=== PATIENT | female | born 1965 | race Caucasian/White ===

== ENCOUNTER → 2017-01-17 | Outpatient (CLI) | payer OTHER ==
[~2017-01-17] MED LIST: ABILIFY5 MG; ANAPROX DS550 MG PO; ANUSOL-HC25 MG RC; ATARAX25 MG PO; ATIVAN0.5 MG PO; ATIVAN1 MG PO; CARVEDILOL12.5 MG; CARVEDILOL6.25 MG PO; CLARITIN10 MG PO; CLINDAMYCIN HC300 MG PO; DONNATAL1 TAB PO; EPI EZ PEN1 MG/ML IM; FIORICET 325 MG1 TAB PO; FIORICET W/CODE1 CA1 PO; HYDROCODONE BIT1 T11 PO; LEVAQUIN750 M1 PO; MAXALT5 MG PO; MOTRIN800 MG PO; NARATRIPTAN PO; PREDNICOT20 MG PO; PREDNISONE50 MG PO; PROCHLORPERAZIN10 MG PO; PROZAC20 MG PO; PROZAC40 MG PO; TOPAMAX25 MG PO; TRAMADOL HCL50 MG PO; ULTRAM50 MG PO; VISTARIL25 M1 PO; XANAX1 MG PO; ZOFRAN ODT4 MG SL; Zofran4 MG PO
[2017-01-17 11:35] LABS: BASO % 0.5 % (0.0-1.0); EOS # 0.3 10*3/uL (0.0-0.4); EOS % 4.6 % (1.0-4.0); HEMATOCRIT 37.2 % (37.0-47.0); HEMOGLOBIN 12.4 g/dl (12.0-16.0); LYMPH % 16.8 % (27.0-41.0); MEAN CELL VOLUME 83.2 fl (81.0-99.0); MEAN CORPUSCULAR HGB 27.7 pg (27.0-31.0); MEAN CORPUSCULAR HGB CONC 33.3 g/dl (33.0-37.0); MONO # 0.7 10*3/uL (0.1-1.0); MONO % 11.8 % (3.0-9.0); NEUT # 3.8 10*3/uL (2.3-7.9); NEUT % 65.8 % (47.0-73.0); PLATELET COUNT AUTOMATED 272 10*3/uL (130-400); RED BLOOD COUNT 4.47 10*6/uL (4.10-5.10); RED CELL DISTRI WIDTH 14.3 % (0-14.5); WHITE BLOOD COUNT 5.8 10*3/uL (4.8-10.8)
[2017-01-17 12:05] LABS: ALBUMIN 3.6 gm/dl (3.1-4.5); ALKALINE PHOSPHATASE 82 U/L (45-117); BILIRUBIN, TOTAL 0.8 mg/dl (0.2-1.0); BUN 6 mg/dl (7-24); CARBON DIOXIDE 33 mmol/L (21-32); CHLORIDE 99 mmol/L (98-107); EST GLOM FILT AFRICAN AMERICAN > 60 ml/min; GLUCOSE 97 mg/dL (65-99); IRON 50 ug/dL (50-170); IRON SATURATION 16 %; POTASSIUM 2.8 mmol/L (3.5-5.1); SGOT/AST 11 IU/L (3-35); SGPT/ALT 20 U/L (12-78); SODIUM 141 mmol/L (136-145); TOTAL PROTEIN 6.7 gm/dL (6.4-8.2); UIBC 247 ug/dL (110-365)
[2017-01-17 12:12] LABS: FERRITIN 15.8 ng/mL (10.0-291.0); VITAMIN D, 25-HYDROXY 43.7 ng/mL (30-100)
[2017-01-17 12:13] LABS: FOLIC ACID > 24.00 ng/mL (>5.38)
== END ==
LOC: LAB 11:06
DX: E56.9 Vitamin deficiency, unspecified (principal); R53.83 Other fatigue; Z98.84 Bariatric surgery status

== ENCOUNTER 2017-05-12 00:29 | Emergency (ER) | payer OTHER ==
[2017-05-12] MEDS ORDERED: LIDOCAINE-HC 3-07 G2 T (01:06)
== END 2017-05-12 02:51 | disposition home or self-care (01) ==
LOC: ED 00:29
DX: K64.9 Unspecified hemorrhoids (principal); Z88.0 Allergy status to penicillin; Z88.6 Allergy status to analgesic agent; Z88.2 Allergy status to sulfonamides; Z91.030 Bee allergy status

== ENCOUNTER 2017-09-27 06:21 | Emergency (ER) | payer OTHER ==
[~2017-09-27] VITALS: Ht 154.9 cm; Wt 49.0 kg
[~2017-09-27 06:21] MED LIST changes: +LIDOCAINE-HC 3-07 G2 T
== END 2017-09-27 07:51 | disposition home or self-care (01) ==
LOC: ED 06:21
DX: H10.9 Unspecified conjunctivitis (principal); G43.909 Migraine, unspecified, not intractable, without status migrainosus; Z91.030 Bee allergy status; Z88.0 Allergy status to penicillin; Z88.6 Allergy status to analgesic agent; Z88.8 Allergy status to other drugs, medicaments and biological substances; Z79.899 Other long term (current) drug therapy

== ENCOUNTER 2017-12-19 09:35 | Emergency (ER) | payer OTHER ==
[~2017-12-19] VITALS: Ht 157.4 cm; Wt 54.4 kg
--- NOTE | ~2017-12-19 | EKG ---
[place], [place] ELECTROCARDIOGRAM REPORT NAME: ARNOLD HERRERA UNIT #: [id number] ROOM: DOCTOR: RHIANNA DIALLO MD BIRTHDATE: [birth year] DOS: 12/19/2017 TIME: 1006 hours. Normal sinus rhythm at 58 beats per minute with the PVC. The tracing is normal. No previous tracing is available for comparison. RHIANNA DIALLO MD CM:EKGRPT:ELECTROCARDIOGRAM REPORT [id number] RHIANNA DIALLO MD
== END 2017-12-19 11:20 | disposition home or self-care (01) ==
LOC: ED 09:35
DX: G43.909 Migraine, unspecified, not intractable, without status migrainosus (principal); H53.149 Visual discomfort, unspecified; Z88.0 Allergy status to penicillin; Z88.2 Allergy status to sulfonamides; Z88.5 Allergy status to narcotic agent; Z91.030 Bee allergy status

== ENCOUNTER 2018-04-20 22:53 | Emergency (ER) | payer OTHER ==
[~2018-04-20] VITALS: Ht 154.9 cm; Wt 57.6 kg
[2018-04-20 23:44] LABS: BASO % 0.7 % (0.0-1.0); EOS # 0.1 10*3/uL (0.0-0.4); EOS % 1.7 % (1.0-4.0); HEMATOCRIT 38.5 % (37.0-47.0); HEMOGLOBIN 13.1 g/dl (12.0-16.0); LYMPH # 2.1 10*3/uL (1.3-4.4); LYMPH % 38.7 % (27.0-41.0); MEAN CELL VOLUME 88.9 fl (81.0-99.0); MEAN CORPUSCULAR HGB 30.3 pg (27.0-31.0); MEAN PLATELET VOLUME 9.4 fl (9.6-12.3); MONO # 0.5 10*3/uL (0.1-1.0); MONO % 9.7 % (3.0-9.0); NEUT # 2.6 10*3/uL (2.3-7.9); NEUT % 48.1 % (47.0-73.0); PLATELET COUNT AUTOMATED 229 10*3/uL (130-400); RED BLOOD COUNT 4.33 10*6/uL (4.10-5.10); RED CELL DISTRI WIDTH 12.1 % (0-14.5); WHITE BLOOD COUNT 5.4 10*3/uL (4.8-10.8)
[2018-04-20 23:56] LABS: ALBUMIN 3.9 gm/dl (3.1-4.5); ALKALINE PHOSPHATASE 72 U/L (45-117); BUN 12 mg/dl (7-24); CHLORIDE 98 mmol/L (98-107); CREATININE 0.81 mg/dL (0.55-1.02); POTASSIUM 3.4 mmol/L (3.5-5.1); SGOT/AST 13 IU/L (3-35); SGPT/ALT 30 U/L (12-78); SODIUM 136 mmol/L (136-145); TOTAL PROTEIN 6.5 gm/dL (6.4-8.2)
[2018-04-21 00:08] LABS: TROPONIN I < 0.015 ng/ml (<0.045)
[2018-04-21] MEDS ORDERED: ZITHROMAX250 MG PO (01:15)
== END 2018-04-21 01:18 | disposition home or self-care (01) ==
LOC: ED 22:53
PROVIDERS: Physician Assistant
DX: S01.112A Laceration without foreign body of left eyelid and periocular area, initial encounter (principal); J18.1 Lobar pneumonia, unspecified organism; Z23 Encounter for immunization; Z79.899 Other long term (current) drug therapy; Z91.030 Bee allergy status; Z88.0 Allergy status to penicillin; Z88.1 Allergy status to other antibiotic agents; Z88.6 Allergy status to analgesic agent; Z88.8 Allergy status to other drugs, medicaments and biological substances; W18.39XA Other fall on same level, initial encounter; Y93.89 Activity, other specified; Y92.89 Other specified places as the place of occurrence of the external cause; Y99.8 Other external cause status

== ENCOUNTER → 2018-04-26 | Outpatient (CLI) | payer OTHER ==
[~2018-04-26] MED LIST changes: +ZITHROMAX250 MG PO
[2018-04-26 11:10] LABS: ALBUMIN 4.3 gm/dl (3.1-4.5); ALKALINE PHOSPHATASE 84 U/L (45-117); BUN 12 mg/dl (7-24); CHLORIDE 98 mmol/L (98-107); CHOLESTEROL 177 mg/dL (<200); CREATININE 0.85 mg/dL (0.55-1.02); FREE T4 1.05 ng/dl (0.76-1.46); HDL CHOLESTEROL 77 mg/dl (40-60); LDL CHOLESTEROL 90 mg/dL (9-159); POTASSIUM 3.5 mmol/L (3.5-5.1); SGOT/AST 15 IU/L (3-35); SGPT/ALT 32 U/L (12-78); SODIUM 137 mmol/L (136-145); TOTAL PROTEIN 7.3 gm/dL (6.4-8.2); TRIGLYCERIDES 50 mg/dl (<150); VLDL CHOLESTEROL 10 mg/dL (6-40)
[2018-04-26 13:00] LABS: VITAMIN D, 25-HYDROXY 30.7 ng/mL (30-100)
== END | disposition home or self-care (01) ==
LOC: LAB 10:35
PROVIDERS: Family Medicine
DX: E55.9 Vitamin D deficiency, unspecified (principal); I10 Essential (primary) hypertension; Z90.3 Acquired absence of stomach [part of]; Z98.84 Bariatric surgery status; Z79.899 Other long term (current) drug therapy

== ENCOUNTER 2018-09-02 14:39 | Emergency (ER) | payer OTHER ==
[~2018-09-02] VITALS: Ht 154.9 cm; Wt 51.7 kg
== END 2018-09-02 17:03 | disposition home or self-care (01) ==
LOC: ED 14:39
DX: G43.909 Migraine, unspecified, not intractable, without status migrainosus (principal); Z88.0 Allergy status to penicillin; Z88.2 Allergy status to sulfonamides; Z88.6 Allergy status to analgesic agent; Z91.030 Bee allergy status; Z79.899 Other long term (current) drug therapy; Y04.0XXA Assault by unarmed brawl or fight, initial encounter; Y93.89 Activity, other specified; Y92.89 Other specified places as the place of occurrence of the external cause; Y99.8 Other external cause status

== ENCOUNTER 2018-10-23 | Emergency (ER) | payer OTHER ==
[2018-10-23 16:51] LABS: BASO # 0.1 10*3/uL (0.0-0.1); BASO % 0.8 % (0.0-1.0); EOS # 0.1 10*3/uL (0.0-0.4); EOS % 2.1 % (1.0-4.0); HEMATOCRIT 40.4 % (37.0-47.0); HEMOGLOBIN 14.3 g/dl (12.0-16.0); LYMPH # 2.2 10*3/uL (1.3-4.4); LYMPH % 34.3 % (27.0-41.0); MEAN CELL VOLUME 88.8 fl (81.0-99.0); MEAN CORPUSCULAR HGB 31.4 pg (27.0-31.0); MEAN CORPUSCULAR HGB CONC 35.4 g/dl (33.0-37.0); MEAN PLATELET VOLUME 9.1 fl (9.6-12.3); MONO # 0.7 10*3/uL (0.1-1.0); MONO % 10.8 % (3.0-9.0); NEUT # 3.3 10*3/uL (2.3-7.9); NEUT % 51.7 % (47.0-73.0); PLATELET COUNT AUTOMATED 312 10*3/uL (130-400); RED BLOOD COUNT 4.55 10*6/uL (4.10-5.10); RED CELL DISTRI WIDTH 12.3 % (0-14.5); WHITE BLOOD COUNT 6.3 10*3/uL (4.8-10.8)
[2018-10-23 17:07] LABS: BUN 16 mg/dl (7-24); CHLORIDE 100 mmol/L (98-107); POTASSIUM 3.5 mmol/L (3.5-5.1); SGOT/AST 32 IU/L (3-35); SGPT/ALT 46 U/L (12-78); SODIUM 138 mmol/L (136-145); TOTAL PROTEIN 6.9 gm/dL (6.4-8.2)
[2018-10-23 17:18] LABS: ALKALINE PHOSPHATASE 95 U/L (45-117)
== END 2018-10-23 18:45 | disposition home or self-care (01) ==
PROVIDERS: Nurse Practitioner Family
DX: G43.909 Migraine, unspecified, not intractable, without status migrainosus (principal); Z91.030 Bee allergy status; Z88.0 Allergy status to penicillin; Z88.1 Allergy status to other antibiotic agents; Z88.5 Allergy status to narcotic agent; Z88.2 Allergy status to sulfonamides; Z79.2 Long term (current) use of antibiotics; Z79.899 Other long term (current) drug therapy